=== PATIENT | male | born 2000 | race Caucasian/White ===

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

== ENCOUNTER 2025-01-31 14:38 | Emergency (ER) | payer OTHER ==
[2025-01-31 14:44] VITALS: BP 120/71; PULSE 88; RESP 20; TEMP 98.3; BMI 43.4
== END 2025-01-31 15:13 | disposition home or self-care (01) ==
LOC: JERFT 14:38
DX: R05.9 Cough, unspecified (principal); J06.9 Acute upper respiratory infection, unspecified; R09.81 Nasal congestion
CPT/HCPCS: 99283-25